=== PATIENT | male | born 1955 | race Caucasian/White ===

== ENCOUNTER → 2016-11-22 | Outpatient (CLI) | payer OTHER ==
[~2016-11-22] MED LIST: ASPI81 PO; FURO20 PO; GLYB5 PO; HYDR25TA84 PO; ISOS60TA4 PO; LOSA50TA37 PO; METO50 PO
== END | disposition home or self-care (01) ==
LOC: RADPV 15:13
PROVIDERS: ATTEND Internal Medicine Nephrology
DX: I51.7 Cardiomegaly (principal); I70.0 Atherosclerosis of aorta; E11.22 Type 2 diabetes mellitus with diabetic chronic kidney disease; N18.6 End stage renal disease; E87.5 Hyperkalemia
CPT/HCPCS: 71020